=== PATIENT | male | born 1965 | race Caucasian/White ===

== ENCOUNTER 2017-10-23 05:53 | Day surgery (SDC) | payer BC ==
[2017-10-23] MEDS ORDERED: DIPRIVAN 200 MG/20 ML IV ONE (05:54)
[2017-10-23] MEDS ORDERED: Versed 2 MG/2 ML Injection IV ONE (05:54)
[2017-10-23] MEDS ORDERED: Lactated Ringers 1,000 ML IV SCH (06:30)
[2017-10-23] MEDS ORDERED: Lactated Ringers 1,000 ML IV ONE (08:00)
[2017-10-23 09:10] VITALS: O2SAT 100
[2017-10-23 09:11] VITALS: BP 152/92; PULSE 65
--- NOTE | 2017-10-23 11:20 | OP ---
SURGERY DATE/TIME: 10/23/2017 0747 PREOPERATIVE DIAGNOSIS: Screening colonoscopy. POSTOPERATIVE DIAGNOSIS: Sigmoid colon polyps x3. PROCEDURE: Colonoscopy. SURGEON: Gerry Saleem M.D. ANESTHESIA: MAC by Ricardo Monge CRNA. ESTIMATED BLOOD LOSS: Minimal. SPECIMENS: Two hot forceps polypectomies from the proximal sigmoid colon and one hot snare polypectomy from distal sigmoid colon. DESCRIPTION OF PROCEDURE: After informed written consent was obtained, the patient was taken to the endoscopy suite. He underwent monitored anesthesia and digital rectal exam showed normal sphincter tone and no internal lesions. The scope was inserted into the rectum and sequentially the entire colonic mucosa was traversed. The level of cecum was reached and verified with direct visualization of ileocecal valve. Upon withdrawal two small sessile polyps were encountered in the proximal sigmoid. They were grasped with forceps and cauterized with complete removal and no bleeding found on removal. Upon further withdrawal there was a larger broad based polypoid lesion in the distal sigmoid between the second and third valves of Alli. This lesion was encircled by a snare and base was cauterized and it was removed in its entirety. It was retrieved in a trap and sent for pathology testing. Retroflexion was performed prior to withdrawal and showed no internal lesions. The scope was removed and the patient was transferred to the recovery room in good condition.
== END 2017-10-23 09:15 | disposition home or self-care (01) ==
LOC: SDC 05:53
PROVIDERS: ATTEND Family Medicine
PROC: 0DBN8ZX Excision of Sigmoid Colon, Via Natural or Artificial Opening Endoscopic, Diagnostic (ICD-10-PCS; principal; 2017-10-23)
PROC: 0DBN8ZX Excision of Sigmoid Colon, Via Natural or Artificial Opening Endoscopic, Diagnostic (ICD-10-PCS; 2017-10-23)
DX: Z12.11 Encounter for screening for malignant neoplasm of colon (principal); K63.5 Polyp of colon
CPT/HCPCS: 00810; J2250; J2704

== ENCOUNTER 2024-11-21 12:04 | Emergency (ER) | payer BC ==
--- NOTE | 2024-11-21 12:30 | ERPHSYRPT ---
- History of Present Illness Time Seen by Provider: 11/21/24 12:28 Source: patient Exam Limitations: no limitations Patient Subjective Stated Complaint: Pt states "I fell out of my truck last night and landed on my left shoulder and my right thumb hurts too." Triage Nursing Assessment: Pt presented alert and oriented X 3, skin pwd. Pt ambulates with an upright steady giat, able to speak in clear full sentences. Pt left arm has good puls and sensation pt stated he is unable to lift it. Pt right thumb tender. Physician History: Pt states "I fell out of my truck last night and landed on my left shoulder and my right thumb hurts too." Occurred: yesterday Method of Injury: fell Extremities Pain Location: shoulder: left, thumb: right Modifying Factors: Improves With: nothing Associated Symptoms: none Body Map: 1 - shoulder pain 2 - thumb pain Allergies/Adverse Reactions: No Known Drug Allergies Allergy (Verified 10/23/17 06:35) Hx Tetanus, Diphtheria Vaccination/Date Given: No Hx Influenza Vaccination/Date Given: No Hx Pneumococcal Vaccination/Date Given: No Immunizations Up to Date: No Travel Risk - International Travel Have you traveled outside of the country in past 3 weeks: No - Emerging Infectious Disease Are you exhibiting symptoms associated with any current EIDs: No - Review of Systems Constitutional: No Symptoms Eyes: No Symptoms Ears, Nose, & Throat: No Symptoms Respiratory: No Symptoms Cardiac: No Symptoms Abdominal/Gastrointestinal: No Symptoms Genitourinary Symptoms: No Symptoms Musculoskeletal: Fall Skin: No Symptoms - Past Medical History Pertinent Past Medical History: Yes Neurological History: No Pertinent History ENT History: No Pertinent History Cardiac History: Hypertension Respiratory History: No Pertinent History Endocrine Medical History: No Pertinent History Musculoskeletal History: Fractures GI Medical History: No Pertinent History History: No Pertinent History Psycho-Social History: No Pertinent History Male Reproductive Disorders: No Pertinent History - Past Surgical History Past Surgical History: Yes Neuro Surgical History: No Pertinent History Cardiac: No Pertinent History Respiratory: No Pertinent History Gastrointestinal: Hernia Repair Genitourinary: No Pertinent History Musculoskeletal: Orthopedic Surgery Male Surgical History: No Pertinent History Other Surgical History: dislocated left shoulder, bx of cyst from head, ankle surgery - Social History Smoking Status: Current every day smoker How long have you smoked: years Exposure to second hand smoke: Yes Drug Use: none - Social Determinants of Health Will the patient participate in the screening: Declined to provide - Nursing Vital Signs Nursing Vital Signs: Initial Vital Signs Temperature 97.2 F 11/21/24 12:12 Pulse Rate 96 H 11/21/24 12:12 Respiratory Rate 18 11/21/24 12:12 Blood Pressure 174/116 11/21/24 12:12 O2 Sat by Pulse Oximetry 98 11/21/24 12:12 Pain Scale Pain Intensity 4 - Physical Exam General Appearance: no apparent distress Eyes, Ears, Nose, Throat Exam: normal ENT inspection Neck Exam: normal inspection Cardiovascular/Respiratory Exam: chest non-tender Abdominal Exam: non-tender Back Exam: normal inspection Shoulder Exam: bone tenderness, deformity, limited ROM, soft tissue tenderness Elbow/Forearm Exam: normal inspection Wrist Exam: normal inspection Hand Exam: limited ROM, soft tissue tenderness (right thumb) SpO2: 98 Procedures - Splinting Time of Procedure: 13:14 Location of Splint: Right Type of Splint: Other (Thumb spica) Splint Applied By: ED Nurse Pre-Proc Neuro Vasc Exam: normal Post-Proc Neuro Vasc Exam: neurovascular intact - Course Nursing assessment & vital signs reviewed: Yes - Radiology Exams Shoulder X-ray Interpretation: Interpreted by me, Reviewed by me, No Fracture (mild separation of glenohumural joint) Hand X-ray Interpretation: Interpreted by me, Reviewed by me Ordered Tests: Active Orders 24 hr Category Date Time Status Sling Application STAT Care 11/21/24 13:20 Active Splint STAT Care 11/21/24 13:21 Active HAND (MINIMUM 3 VIEWS) Stat Exams 11/21/24 12:31 Taken SHOULDER Stat Exams 11/21/24 12:24 Taken Medication Summary Discontinued Medications Generic Name Dose Route Start Last Admin Trade Name Freq PRN Reason Stop Dose Admin Ketorolac Tromethamine 60 mg 11/21/24 13:12 11/21/24 13:16 Ketorolac Tromethamine 30 Mg/Ml Inj IM 11/21/24 13:13 60 mg STAT ONE Administration Ketorolac Tromethamine Confirm 11/21/24 13:15 Ketorolac Tromethamine 30 Mg/Ml Inj Administered 11/21/24 13:16 Dose 60 mg .ROUTE .STK-MED ONE Orphenadrine Citrate 60 mg 11/21/24 13:12 11/21/24 13:16 Orphenadrine Citrate 60 Mg/2 Ml Vial IM 11/21/24 13:13 60 mg STAT ONE Administration Orphenadrine Citrate Confirm 11/21/24 13:15 Orphenadrine Citrate 60 Mg/2 Ml Vial Administered 11/21/24 13:16 Dose 60 mg .ROUTE .STK-MED ONE - Progress Progress: improved, pain not gone completely Counseled pt/family regarding: diagnosis, need for follow-up, rad results Medical Desision Making - Diagnostic Testing Diagnostic test were ordered, analyzed, and reviewed by me: Yes - Risk of complications Minimal Risk: Minimal risk of morbidity - Departure Departure Disposition: Home Clinical Impression: Left shoulder strain Qualifiers: Encounter type: initial encounter Qualified Code(s): S46.912A - Strain of unspecified muscle, fascia and tendon at shoulder and upper arm level, left arm, initial encounter Fracture of thumb, right, closed Qualifiers: Encounter type: initial encounter Phalanx: unspecified phalanx Fracture alignment: nondisplaced Qualified Code(s): S62.501A - Fracture of unspecified phalanx of right thumb, initial encounter for closed fracture Condition: Stable Critical Care Time: No Referrals: FOREIGN CHAU MD [NON-STAFF PHY W/O PRIVILEGES] - [facility] M-F [id number] Instructions: Shoulder Sprain (DC), Sprained Thumb (DC) Additional Instructions: Discharge/Care Plan RENÉJAMESAGGIE SLAUGHTER was seen on 11/21/24 in the Emergency Room. The patient was counseled regarding Diagnosis,Lab results, Imaging studies, need for follow up a nd when to return to the Emergency Room. Prescriptions given: Discharge Note I have spoken with the patient and/or caregivers. I have explained the patient's condition, diagnosis and treatment plan based on the information available to me at this time. I have answered the patient's and/or caregiver's questions and addressed any concerns. The patient and/or caregivers have as good understanding of the patient's diagnosis, condition and treatment plan as can be expected at this point. The vital signs have been stable. The patient's condition is stable and appropriate for discharge from the emergency department. The patient will pursue further outpatient evaluation with the primary care physician or other designated or consulting physician as outlined in the discharge instructions. The patient and/or caregivers are agreeable to this plan of care and follow-up instructions have been explained in detail. The patient and/or caregivers have received these instruction. The patient/and or caregivers are aware that any significant change in condition or worsening of symptoms should prompt an immediate return to this or the closest emergency department or call 911. JESSENIADAWSONAGGIE SLAUGHTER was seen on 11/21/24 n the Emergency Room. At that time you were treated for an emergent condition, during your visit Laboratory, Radiology and/or other procedures may have been ordered. It is very important that you follow-up with your Primary Care Physician NO FAMILY DOCTOR within the next 24- 48 hours to review your Emergency Room visit and the final results of testing that was ordered. Some test results such as Urine Cultures, Blood Cultures, and other cultures if ordered will not be finalized for 24-48 hours. If you do not have a Primary Care Provider please call the medical records department at [phone] ext [phone] to obtain a copy of your results or you may sign into our patient portal to obtain these results by visiting us @ [email or web address] and completing the following steps: 1. Click on the Patient Portal link 2. Click the Patient Self Enrollment Link to complete the enrollment form and entering your 3. Once the enrollment form is completed you will receive an email with a temporary ID and password at the email address you provided. 4. Next choose a user name and password. Your user name must be at least 4 characters long and your password must be at least 4 characters long. 5. Choose a security question from the list and provide your answer to the question. If you already have signed into the Health Portal you may access your Health Care Information 17/06 by the following steps: 1. Login to our website @ [email or web address] 2. Enter your original user name and password. FAQS The [facility] Health Portal is an online tool that contains your Lab Results, Radiology Reports, Visit History, Discharge Instructions and Health Summary Lab and Radiology Results will not be available for 72 hours on the portal. The Portal is a secure site, passwords are encryted and URLs are re-written so they cannot be copied and pasted. You and authorized family members are the only ones who can access your Portal. Also there is a timeout feature that protects your information if you leave the Portal page open. If you have technical difficulty please use the Contact Us link on the page this will allow you to submit any questions you have regarding the Portal or you may contact the Medical Record Department at [phone]. Prescriptions: Ketorolac Trometh 10 mg Tab [TORAdol 10 MG TABLET] 10 mg PO QID #20 tablet
[2024-11-21 13:15] VITALS: O2SAT 98
[2024-11-21] MEDS ORDERED: Norflex 60 MG/2 ML ONE (13:15)
[2024-11-21] MEDS ORDERED: TORAdol 30 mg Injection ONE (13:15)
[2024-11-21] MEDS: TORAdol 30 mg Injection IM ONE (13:16)
[2024-11-21] MEDS: Norflex 60 MG/2 ML IM ONE (13:16)
[2024-11-21 14:07] VITALS: TEMP 98.4
[2024-11-21 14:30] VITALS: BP 158/86; PULSE 78; RESP 20
--- NOTE | 2024-11-21 20:16 | XRAY ---
Indication: Pain following fall. Comparison: None 3 view left shoulder demonstrates osteopenia, minimal AC degenerative arthropathy, mild aortic calcifications, and tiny left lung base calcified granuloma. No acute bony, articular, or soft tissue abnormalities.
--- NOTE | 2024-11-21 20:18 | XRAY ---
Indication: Pain following fall. Comparison: None 3 view right hand demonstrates osteopenia and mild 1st metacarpal multangular degenerative changes. No other bony, articular, or soft tissue abnormalities.
== END 2024-11-21 14:28 | disposition home or self-care (01) ==
LOC: ED 12:04
DX: S46.912A Strain of unspecified muscle, fascia and tendon at shoulder and upper arm level, left arm, initial encounter (principal); S62.501A Fracture of unspecified phalanx of right thumb, initial encounter for closed fracture; M25.512 Pain in left shoulder; M79.644 Pain in right finger(s); W17.89XA Other fall from one level to another, initial encounter
CPT/HCPCS: 73030; 73130; 96372; 99283; J1885; J2360

== ENCOUNTER 2024-12-11 05:51 | Day surgery (SDC) | payer BC ==
[~2024-12-11 05:51] MED LIST: CEFAZOLIN 2 GM/100 ML IV ONE; Decadron 4 MG ONE; Lactated Ringers 1,000 ML IV ONE; NACL IV ONE; NEURONTIN ONE; TYLENOL EXTRA STRENGTH 500 MG ONE; celeBREX 100 MG ONE
[2024-12-11] MEDS: Decadron 4 MG PO ONE (06:00)
[2024-12-11] MEDS: CEFAZOLIN 2 GM/100 ML NaCl 2 GM/100 ML IVPB IV SCH (06:00)
[2024-12-11] MEDS: NEURONTIN PO ONE (06:00)
[2024-12-11] MEDS: TYLENOL EXTRA STRENGTH 500 MG PO ONE (06:00)
[2024-12-11] MEDS: celeBREX 100 MG PO ONE (06:00)
[2024-12-11] MEDS: Lactated Ringers 1,000 ML IV SCH (06:01)
[2024-12-11 06:10] VITALS: BP 186/105; PULSE 84; RESP 18; TEMP 97.5; O2SAT 94
--- NOTE | 2024-12-11 06:55 | XRAY ---
CLINICAL HISTORY: pre op COMPARISON: None. TECHNIQUE: An X-ray image of the chest is obtained in AP projection. FINDINGS: Pulmonary Parenchyma: Bilateral hypertransradiant lung field suggestive of underlying chronic obstructive airway disease. Minimal pleural reaction involving the left costophrenic recess. Heart and Mediastinum: The cardiac silhouette is mildly enlarged. No mediastinal mass seen. No hilar or mediastinal lymphadenopathy was seen. Bony Thorax: The bony thorax appears intact without fractures or deformities. Soft Tissues: Soft tissues overlying the chest wall are unremarkable. IMPRESSION: 1. Bilateral hypertransradiant/hyperinflated lung crowder. Chronic obstructive airway disease. 2. Small left pleural reaction/thickening. 3. Mild cardiomegaly. Electronically Signed by: Manju Mccarty MD. (12/11/2024 06:51:09 EST)
== END 2024-12-11 06:36 | disposition home or self-care (01) ==
LOC: SDC 05:51
PROVIDERS: ATTEND Orthopaedic Surgery
DX: Z53.8 Procedure and treatment not carried out for other reasons (principal); I10 Essential (primary) hypertension
CPT/HCPCS: 71045; J0690; A9270-GY